=== PATIENT | female | born 1925 | race Caucasian/White ===

== ENCOUNTER 2017-08-02 09:57 | Emergency (ER) | payer MEDICARE ==
[~2017-08-02] VITALS: Ht 157.5 cm; Wt 48.1 kg
[2017-08-02 09:57] VITALS: BP 137/67
--- NOTE | 2017-08-02 10:00 | NUR ---
AAOX3, BIB FAMILY C/O LEFT EYEBROW LACERATION S/P GLF X 2 DAYS AGO, -KO. RR IS EVEN AND UNLABORED WITH NAD NOTED. SKIN IS WARM AND DRY. AWAITING MD FOR EVAL. NEURO INTACT.
[2017-08-02] MEDS ORDERED: TDAP [DIPH/PERTUSSIS/TET] 0.5 ML VIAL IM ONE (10:13)
[2017-08-02] MEDS: BACI/NEOM/POLY B OINT PKT 1 UDPKT PACKET TP ONE (10:16)
[2017-08-02] MEDS: TDAP [DIPH/PERTUSSIS/TET] 0.5 ML VIAL IM ONE (10:16)
== END 2017-08-02 10:26 | disposition home or self-care (01) ==
LOC: ER 09:59
DX: S01.112A Laceration without foreign body of left eyelid and periocular area, initial encounter (principal); J45.909 Unspecified asthma, uncomplicated; Z88.5 Allergy status to narcotic agent; Z90.710 Acquired absence of both cervix and uterus; Z90.49 Acquired absence of other specified parts of digestive tract; W01.198A Fall on same level from slipping, tripping and stumbling with subsequent striking against other object, initial encounter; Y93.89 Activity, other specified; Y92.89 Other specified places as the place of occurrence of the external cause; Y99.8 Other external cause status
CPT/HCPCS: 90715; A4606; A6402; Z7610